=== PATIENT | male | born 1935 | race Caucasian/White ===

== ENCOUNTER 2018-02-17 13:17 | Day surgery (SDC) | payer MEDICARE, OTHER ==
[~2018-02-17] VITALS: Ht 175.3 cm; Wt 80.3 kg
[~2018-02-17 13:17] MED LIST: ALPHA LIPOIC A200 MG PO; B100 COMPLEX UL1 TA1 PO; CHROMIUM PICO500 MCG PO; COLACE 100100 MG/CAP PO; CRANBERRY450 MG PO; FLAX OIL1000 MG PO; GLUCOPHAGE1000 MG PO; GLUCOTROL 5M5 MG/TAB PO; GLUCOTROL10 MG PO; MAGNESIUM200 MG PO; NORCO 325 MG-51 TAB PO; PYRIDIUM200 M1 PO; ZESTRIL 20MG TA20 MG PO; [UNRECOGNIZED DRUG - OTHER]; [UNRECOGNIZED DRUG - OTHER] PO
[2018-02-17] MEDS ORDERED: GLUCOTROL10 MG PO (14:48)
[2018-02-17] MEDS ORDERED: THE MEDICINE S200 M2 PO (14:48)
[2018-02-17] MEDS ORDERED: COZAAR100 MG PO (14:49)
[2018-02-17] MEDS ORDERED: ALPHA LIPOIC A200 M2 PO (14:49)
[2018-02-17] MEDS ORDERED: GLUCOPHAGE1000 MG PO (14:50)
[2018-02-17] MEDS ORDERED: MULTIPLE VITAMI1 TA5 PO (14:51)
[2018-02-17] MEDS ORDERED: PLAVIX 75MG TAB75 MG PO (14:51)
[2018-02-17] MEDS ORDERED: ZETIA 10MG TAB10 MG PO (14:51)
[2018-02-17] MEDS ORDERED: ASPIRIN 81M81 MG/TA2 PO (14:52)
[2018-02-17] MEDS ORDERED: PROTONIX20 MG PO (14:52)
[2018-02-17 16:05] VITALS: BP 150/65; PULSE 64; TEMP 97.4
[2018-02-17 16:20] VITALS: BP 151/64; PULSE 64
[2018-02-17 16:35] VITALS: BP 148/59; PULSE 61
== END 2018-02-17 16:47 | disposition home or self-care (01) ==
LOC: SDCO 13:17
DX: K29.30 Chronic superficial gastritis without bleeding (principal); E11.9 Type 2 diabetes mellitus without complications; I10 Essential (primary) hypertension; I73.9 Peripheral vascular disease, unspecified; Z79.84 Long term (current) use of oral hypoglycemic drugs; Z79.02 Long term (current) use of antithrombotics/antiplatelets; Z95.820 Peripheral vascular angioplasty status with implants and grafts
CPT/HCPCS: OP; J2250; J3010